=== PATIENT | male | born 1980 | race African-American/Black ===

== ENCOUNTER 2021-05-31 14:39 | Emergency (ER) | payer MEDICAID ==
[~2021-05-31] VITALS: Ht 182.9 cm; Wt 91.0 kg
[2021-05-31] MEDS ORDERED: TETANUS, DIPHTHERIA, PERTUSSIS VAC/PF 0.5ML (>10YR OLD) IM ONE (14:45)
[2021-05-31] MEDS ORDERED: SODIUM CHLORIDE 0.9% 1,000 ML IV ONE (14:45)
[2021-05-31] MEDS ORDERED: MORPHINE SULFATE 4 MG/ML CPJ (NOT FOR IM USE) IV STA (14:45)
[2021-05-31] MEDS ORDERED: CEFAZOLIN 1000MG PREMIX 50 ML IV ONE (15:00)
[2021-05-31] MEDS ORDERED: GENTAMICIN 100MG PREMIX 100 ML IV ONE (15:00)
[2021-05-31 15:09] LABS: HEMATOCRIT. 47.6 % (42.0-52.0); HEMOGLOBIN. 15.4 g/dL (14.0-18.0); MEAN CORPUSCULAR VOLUME 83.3 fL (80.0-94.0); MEAN PLATELET VOLUME 8.3 fl (7.4-10.4); PLATELET 279 x1000/uL (130-400); RED BLOOD CELL COUNT 5.71 mill/uL (4.7-6.1); RED CELL DISTRIBUTION WIDTH 15.6 % (11.6-14.6)
[2021-05-31 15:13] LABS: CHLORIDE 104 mEq/L (98-107)
[2021-05-31 15:16] LABS: PROTHROMBIN TIME 10.8 sec (9.6-11.0)
[2021-05-31] MEDS ORDERED: FENTANYL CITRATE/PF 50MCG/ML 2ML VIAL IV ONE ×3 (15:30→18:15)
[2021-05-31 16:01] LABS: PLATELET ESTIMATE NORMAL
[2021-05-31] MEDS ORDERED: IOHEXOL-350 100 ML BOTTLE ONE (17:49)
[2021-05-31 19:15] VITALS: BP 136/94
== END 2021-05-31 19:26 | disposition short-term general hospital (02) ==
LOC: ER 14:39
DX: S52.102A Unspecified fracture of upper end of left radius, initial encounter for closed fracture (principal); S52.002A Unspecified fracture of upper end of left ulna, initial encounter for closed fracture; S51.812A Laceration without foreign body of left forearm, initial encounter; W33.01XA Accidental discharge of shotgun, initial encounter; Y93.89 Activity, other specified; Y92.89 Other specified places as the place of occurrence of the external cause; Y99.8 Other external cause status
CPT/HCPCS: 12001; 36415; 71045; 73060; 73090; 73206; 80053; 85025; 85610; 86850; 86900; 86901; 90471; 90715; 96365; 96367; 96375; 96376; 99285; J0690; J1580; J2270; J3010; J7030; Q9967; Z7610